=== PATIENT | female | born 1935 | race Caucasian/White ===

== ENCOUNTER 2018-08-11 06:39 | Day surgery (SDC) | payer MEDICARE ==
[~2018-08-11] VITALS: Ht 157.5 cm; Wt 52.6 kg
[~2018-08-11 06:39] MED LIST: ASPI81CH PO; CALCIUM CITRATE PO; CHOL10002 PO; CHOLECALCIFEROL PO; IRON PO; LATANOPROST 0.7.5 ML BOTHEYES; Omega 3 1,0001 EACH PO
--- NOTE | 2018-08-11 07:55 | NUR ---
History, Chart, Medications and Allergies reviewed before start of procedure. Patient confirms NPO status and agrees with scheduled surgery. Lungs clear T/O to Auscultation. Patient States Post-Procedure ride home has been arranged. Pre-Op teaching done. Pt verbalizes understanding. Patient reports completing Chlorhexadine shower X2 prior to admission to hospital.
--- NOTE | 2018-08-11 08:10 | NUR ---
PATIENT UP FOR UNMEASURED VOID AND BACK TO BED.
--- NOTE | 2018-08-11 08:19 | NUR ---
CONSTRUCTION CHECKER REPORT COMPLETED AT BEDSIDE WITH CLAUDIA QUIÑONES RN. WILL AWAIT HIS CALL FOR A READY OR.
--- NOTE | 2018-08-11 11:56 | NUR ---
DAY SURGERY RN | DISCHARGE Report from Brooklynn DANIEL. VSS. A/O. Family at bedside. Discharge instructions given. Bulb suction info given to patient. No issues in day surgery step down. Denies nausea, pain medication given (Lortab used for the PO norco order). Tolerating PO fluids and crackers. Patient is "weak", treating patient as stand by assist. 25ml emptied from rodri drain. Patient wheeled to entrance in wheelchair to private vehicle.
== END 2018-08-11 22:46 | disposition home or self-care (01) ==
LOC: ORSCMMR 06:39 → ORD 08:30 → ORSCMMR 08:30
PROVIDERS: Surgery
PROC: 07B60ZX Excision of Left Axillary Lymphatic, Open Approach, Diagnostic (ICD-10-PCS; principal; 2018-08-11 08:30)
PROC: 0HBU0ZZ Excision of Left Breast, Open Approach (ICD-10-PCS; principal; 2018-08-11 08:30)
DX: C50.412 Malignant neoplasm of upper-outer quadrant of left female breast (principal); Z17.0 Estrogen receptor positive status [ER+]; D36.0 Benign neoplasm of lymph nodes; Z79.82 Long term (current) use of aspirin
CPT/HCPCS: 88307; J1100; J1885; J2250; J2405; J3010; J7120; Q9968

== ENCOUNTER → 2020-02-02 | Outpatient (CLI) | payer MEDICARE ==
[2020-02-02 18:55] LABS: BASOPHILS ABSOLUTE AUTO 0.04 K/mm3 (0.00-0.23); BASOPHILS PERCENT AUTO 1 % (0-2); EOSINOPHILS ABSOLUTE AUTO 0.06 K/mm3 (0.00-0.68); EOSINOPHILS PERCENT AUTO 1 % (0-6); Hematocrit 38.4 % (33.0-51.0); Hemoglobin 12.7 g/dL (11.5-16.0); IMMATURE GRAN ABSOLUTE AUTO 0.01 K/mm3 (0.00-0.10); IMMATURE GRAN PERCENT AUTO 0 % (0-1); LYMPHOCYTES ABSOLUTE AUTO 1.54 K/mm3 (0.84-5.20); LYMPHOCYTES PERCENT AUTO 23 % (21-46); MONOCYTES ABSOLUTE AUTO 0.45 K/mm3 (0.16-1.47); MONOCYTES PERCENT AUTO 7 % (4-13); Mean Corpuscular HGB 30.9 pg (26.0-34.0); Mean Corpuscular HGB Conc 33.1 g/dL (31.5-36.5); Mean Corpuscular Volume 93 fL (80-100); Mean Platelet Volume 10.1 fL (9.1-12.4); NEUTROPHILS ABSOLUTE AUTO 4.59 K/mm3 (1.96-9.15); NEUTROPHILS PERCENT AUTO 69 % (41-73); Platelet Count 270 K/mm3 (150-400); RDW Standard Deviation 41.8 fL (35.1-46.3); Red Blood Cell Count 4.11 M/mm3 (3.80-5.20); White Blood Cell Count 6.69 K/mm3 (4.00-11.30)
[2020-02-02 19:37] LABS: Alanine Aminotransfer (ALT/SGP 19 U/L (12-78); Albumin, Blood 3.8 g/dL (3.4-5.0); Alk Phos 85 U/L (50-136); Anion Gap 3 mmol/L (6-16); Aspartate Aminotrans (AST/SGOT 17 U/L (12-37); Bilirubin, Total 0.8 mg/dL (0.1-1.0); Blood Urea Nitrogen 17 mg/dL (8-24); Bun/Creatinine Ratio 24.3 (12.0-20.0); CO2, Blood 29 mmol/L (21-32); Calcium, Blood 8.9 mg/dL (8.5-10.1); Chloride, Blood 108 mmol/L (98-108); Globulin, Blood 3.7 g/dL (2.2-4.0); Glomerular Filtration Rate >60 (60-); Glucose, Blood 96 mg/dL (70-99); Potassium, Blood 3.9 mmol/L (3.5-5.5); Sodium, Blood 140 mmol/L (136-145); Total Protein, Blood 7.5 g/dL (6.4-8.2)
== END | disposition home or self-care (01) ==
LOC: LAB SHORT 18:20 → LAB 18:20
PROVIDERS: Nurse Practitioner Family
DX: R31.9 Hematuria, unspecified (principal)
CPT/HCPCS: 80053; 85025; 87086

== ENCOUNTER 2020-03-26 20:40 | Emergency (ER) | payer MEDICARE ==
[~2020-03-26] VITALS: Ht 157.5 cm; Wt 54.4 kg
[~2020-03-26 20:40] MED LIST changes: -LATANOPROST 0.7.5 ML BOTHEYES
[2020-03-26] MEDS ORDERED: CARVEDILOL6.25 MG PO (21:42)
[2020-03-26] MEDS ORDERED: PRINIVIL10 MG PO (21:42)
[2020-03-26] MEDS ORDERED: REMERON15 MG PO (21:43)
[2020-03-26] MEDS ORDERED: LATANOPROST 0.7.5 ML BOTHEYES (21:44)
[2020-03-26] MEDS ORDERED: EFFEXOR XR37.5 MG PO (21:44)
== END 2020-03-26 22:30 | disposition home or self-care (01) ==
LOC: ER 20:40
DX: S01.01XA Laceration without foreign body of scalp, initial encounter (principal); W01.0XXA Fall on same level from slipping, tripping and stumbling without subsequent striking against object, initial encounter
CPT/HCPCS: 12001; 70450; 99283-25